=== PATIENT | male | born 1985 | race Caucasian/White ===

== ENCOUNTER 2018-09-23 05:49 | Emergency (ER) | payer MEDICAID ==
[~2018-09-23] VITALS: Ht 180.3 cm; Wt 69.0 kg
[~2018-09-23 05:49] MED LIST: ONDA4TAB59 PO; ONDA8TAB9 PO; POLY119P2 PO; PROM25SU46 RC; RANI-366 PO
[2018-09-23] MEDS ORDERED: triamcinolone acetonide 40mg/ml inj IM ONE (06:10)
[2018-09-23] MEDS ORDERED: PRED20TA PO (06:12)
[2018-09-23 06:23] VITALS: BP 132/56
== END 2018-09-23 06:25 | disposition home or self-care (01) ==
LOC: ER 05:50
DX: L23.7 Allergic contact dermatitis due to plants, except food (principal); K21.9 Gastro-esophageal reflux disease without esophagitis; F12.90 Cannabis use, unspecified, uncomplicated; F17.200 Nicotine dependence, unspecified, uncomplicated; Z88.5 Allergy status to narcotic agent; Z79.899 Other long term (current) drug therapy
CPT/HCPCS: 96372; 99283; J3301

== ENCOUNTER 2018-10-27 08:52 | Emergency (ER) | payer MEDICAID ==
[~2018-10-27] VITALS: Ht 180.3 cm; Wt 77.3 kg
[~2018-10-27 08:52] MED LIST changes: +DOXY100C2 PO; +PERM60CR19 TP
[2018-10-27 08:58] VITALS: BP 154/82
[2018-10-27] MEDS ORDERED: triamcinolone acetonide 40mg/ml inj IM ONE (09:20)
[2018-10-27] MEDS ORDERED: TRIA15CR61 TP (09:28)
[2018-10-27] MEDS ORDERED: METH4TAB81 PO (09:28)
== END 2018-10-27 09:48 | disposition home or self-care (01) ==
LOC: ER 08:53
DX: L23.7 Allergic contact dermatitis due to plants, except food (principal); K21.9 Gastro-esophageal reflux disease without esophagitis; F12.90 Cannabis use, unspecified, uncomplicated; Z90.49 Acquired absence of other specified parts of digestive tract; Z88.5 Allergy status to narcotic agent; Z79.899 Other long term (current) drug therapy
CPT/HCPCS: 96372; 99283; J3301